=== PATIENT | male | born 1985 | race African-American/Black ===

== ENCOUNTER 2016-07-03 19:39 | Inpatient (IN) | payer BC ==
[~2016-07-03] VITALS: Ht 180.3 cm; Wt 79.4 kg
[2016-07-03] MEDS ORDERED: Vancomycin 1 GM in NS 275 ML IVPB ONE (20:45)
[2016-07-03 20:49] VITALS: BP 101/68
[2016-07-03 21:15] LABS: BASOPHILS % (AUTO) 0.5 % (0.0-2.0); EOSINOPHILS % (AUTO) 0.1 % (0.0-3.0); LYMPHOCYTES % (AUTO) 12.7 % (20.0-45.0); MEAN CORPUSCULAR HEMOGLOBIN 32.6 PG (27.0-31.0); MEAN CORPUSCULAR HGB CONC 34.6 G/DL (32.0-36.0); MEAN CORPUSCULAR VOLUME 94 FL (80-99); MEAN PLATELET VOLUME 5.9 FL (6.5-10.1); MONOCYTES % (AUTO) 3.8 % (1.0-10.0); PLATELET COUNT 277 K/UL (150-450); RED BLOOD COUNT 4.42 M/UL (4.70-6.10); RED CELL DISTRIBUTION WIDTH 10.9 % (11.6-14.8); WHITE BLOOD COUNT 8.6 K/UL (4.8-10.8)
[2016-07-03] MEDS: Dexamethasone 4mg/ml vial IVP ONE ×2 (21:19→22:44)
[2016-07-03] MEDS: cefTRIAXone 2 GM in NS 110 ML IVPB ONE ×2 (21:20→22:44)
[2016-07-03 21:23] LABS: ALANINE AMINOTRANSFERASE 17 U/L (3-41); ALBUMIN/GLOBULIN RATIO 1.7 (1.0-2.7); ANION GAP 18 (5-15); ASPARTATE AMINO TRANSFERASE 25 U/L (5-40); CALCIUM 9.5 mg/dL (8.6-10.2); CARBON DIOXIDE 21 mEQ/L (20-30); CHLORIDE 99 mEQ/L (98-107); CREATININE 1.3 mg/dL (0.7-1.2); GLOMERULAR FILTRATION RATE > 60 mL/min (>60); HEMOLYSIS 8; POTASSIUM 3.7 mEQ/L (3.4-4.9); SODIUM 138 mEQ/L (135-145); TOTAL PROTEIN 7.3 g/dL (6.6-8.7)
[2016-07-03 21:39] LABS: CKMB 4.5 ng/mL (< 6.7); TROPONIN I < 0.30 ng/mL (<=0.30)
[2016-07-03 21:42] LABS: APPEARANCE,URINE CLEAR; KETONES,URINE 3+ (NEGATIVE); LEUKOCYTE ESTERASE ,URINE NEGATIVE (NEGATIVE); NITRITE,URINE NEGATIVE (NEGATIVE); PH,URINE 9 (4.5-8.0); PROTEIN,URINE NEGATIVE (NEGATIVE); UROBILINOGEN,URINE NORMAL MG/DL (0.0-1.0)
[2016-07-03] MEDS ORDERED: NKM (21:47)
--- NOTE | 2016-07-03 21:56 | Emergency Room Report ---
History of Present Illness General Chief Complaint: Abdominal Pain Source: Patient Present Illness HPI 30 YO M brought in by coworkers with AMS. 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 Called this afternoon that he didnt feel well, had headache and vomited. Is non-sensical speech now. No slurred speech or facial droop or limb weakness normal. endorses has smoked marijuana in past but doubts current drug use. Has no other medical problems. Unknown if sick contacts at work. Denies foreign travel. Allergies: Coded Allergies: No Known Allergies (Unverified , 07/03/16) Patient History Past Medical History: none Past Surgical History: none Pertinent Family History: none Social History: Denies: alcohol use, drug use, smoking Immunizations: UTD Reviewed Nursing Documentation: PMH: Agreed, PSxH: Agreed Nursing Documentation-PMH Hx Asthma: Yes Review of Systems All Other Systems: limited - AMS Physical Exam Vital Signs Date Time Temp Pulse Resp B/P Pulse Ox O2 Delivery O2 Flow Rate FiO2 07/03/16 20:02 97.7 73 19 139/64 95 Room Air Sp02 EP Interpretation: reviewed, normal General Appearance: normal inspection, well appearing, no apparent distress, alert, GCS 15, non-toxic Head: normocephalic, atraumatic Eyes: bilateral eye EOMI, bilateral eye PERRL ENT: normal ENT inspection, hearing grossly normal, normal voice Neck: normal inspection, full range of motion, supple, no meningismus, no bony tend Respiratory: normal inspection, lungs clear, normal breath sounds, no respiratory distress, no retraction, no wheezing Cardiovascular #1: regular rate, rhythm, no edema Gastrointestinal: normal inspection, normal bowel sounds, non tender, soft, no guarding, no hernia Genitourinary: no CVA tenderness Musculoskeletal: normal inspection, back normal, normal range of motion, Arya' s Sign negative Neurologic: normal inspection, alert, oriented x3, responsive, apprentice III-XII nml as tested, motor strength/tone normal, DTRs symmetric, normal gait, speech normal, other - negative laney morrison Psychiatric: normal inspection, judgement/insight normal, mood/affect normal Skin: normal inspection, normal color, no rash Lymphatic: normal inspection Procedures Lumbar Puncture Consent: Verbal Location: L3-L4 Anesthesia: 1% Lidocaine Prep: bedadine Needle Size: 1 1/2 Attempts: Other - 2 Complications: none Patient Tolerated: Well Medical Decision Making Diagnostic Impression: Primary Impression: Altered mental status Qualified Codes: R41.82 - Altered mental status, unspecified ER Course 30 YOM with AMS. VSS. Afebrile. No focal neuro deficits. No meningeal signs. No leukocytosis Utox negative. MABEL on labs LP x2 was unsuccessful CT head negative for mass. ?FB seen on left parietal head on CT - no visible FB on patient. endorses distant head trauma Will tx empirically with Cef/Vanc and dex for meningitis although unlikely Patient's mental status is improving but not completely coherent Endorsed to Dr Rodriguez to endorse for admission for tele at 1042pm Last Vital Signs Date Time Temp Pulse Resp B/P Pulse Ox O2 Delivery O2 Flow Rate FiO2 07/03/16 20:49 97.7 80 19 101/68 95 Room Air Status: improved Disposition: ADMITTED INPATIENT Condition: Critical Referrals: NOT CHOSEN IPA/,REFERRING (PCP) LELAND MTZ M.D. Jul 03, 2016 21:56
[2016-07-03 21:58] LABS: REFLEX LACTIC ACID YES OR NO YES
[2016-07-03] MEDS ORDERED: Lidocaine 1% Plain 30 ml INJ ONE (22:29)
[2016-07-03] MEDS ORDERED: Miralax 17gm pkt ORAL PRN (23:15)
[2016-07-03] MEDS ORDERED: Morphine Sulfate 2mg/ml Inj IVP PRN (23:15)
[2016-07-03] MEDS ORDERED: LORazepam Inj 2mg/ml 1ml IV PRN (23:15)
[2016-07-03] MEDS ORDERED: Zolpidem 5mg tab ORAL PRN (23:15)
[2016-07-03] MEDS ORDERED: Mylanta II UD 30ml ORAL PRN (23:15)
[2016-07-03] MEDS ORDERED: Vancomycin 1gm inj IVPB ONE (23:21)
[2016-07-03 23:31] VITALS: BP 128/61
[2016-07-04] VITALS (7 sets, daily range): BP systolic 100–134; BP diastolic 50–68
[2016-07-04 07:44] LABS: BASOPHILS % (AUTO) 0.3 % (0.0-2.0); LYMPHOCYTES % (AUTO) 17.7 % (20.0-45.0); MEAN CORPUSCULAR HEMOGLOBIN 33.2 PG (27.0-31.0); MEAN CORPUSCULAR HGB CONC 35.3 G/DL (32.0-36.0); MEAN CORPUSCULAR VOLUME 94 FL (80-99); MEAN PLATELET VOLUME 6.5 FL (6.5-10.1); MONOCYTES % (AUTO) 4.1 % (1.0-10.0); PLATELET COUNT 255 K/UL (150-450); RED BLOOD COUNT 3.81 M/UL (4.70-6.10); RED CELL DISTRIBUTION WIDTH 11.5 % (11.6-14.8); WHITE BLOOD COUNT 4.5 K/UL (4.8-10.8)
[2016-07-04 07:56] LABS: ALANINE AMINOTRANSFERASE 14 U/L (3-41); ALBUMIN/GLOBULIN RATIO 1.7 (1.0-2.7); ANION GAP 10 (5-15); ASPARTATE AMINO TRANSFERASE 20 U/L (5-40); CALCIUM 8.5 mg/dL (8.6-10.2); CARBON DIOXIDE 22 mEQ/L (20-30); CHLORIDE 105 mEQ/L (98-107); CREATININE 1.1 mg/dL (0.7-1.2); GLOMERULAR FILTRATION RATE > 60 mL/min (>60); HEMOLYSIS 4; POTASSIUM 4.4 mEQ/L (3.4-4.9); SODIUM 137 mEQ/L (135-145); TOTAL PROTEIN 5.8 g/dL (6.6-8.7)
--- NOTE | 2016-07-04 08:56 | Consultation ---
History of Present Illness General Date patient seen: Jul 04, 2016 Chief Complaint: Abdominal Pain Present Illness Allergies: Coded Allergies: No Known Allergies (Unverified , 07/03/16) Medication History Scheduled No Known Medications* (NKM - No Known Medications*), 0 ., (Reported) Patient History Healthcare decision maker Resuscitation status Full Code Advanced Directive on File Yes Physical Exam Last 24 Hour Vital Signs Date Time Temp Pulse Resp B/P Pulse Ox O2 Delivery O2 Flow Rate FiO2 07/04/16 08:08 98.1 92 19 106/58 95 Room Air 07/04/16 04:00 98.2 83 18 100/50 95 Room Air 07/04/16 02:51 97.7 80 19 110/68 95 Room Air 07/04/16 02:45 97.7 80 19 110/68 95 Room Air 07/04/16 01:25 97.7 78 19 104/66 95 Room Air 07/03/16 23:31 97.7 73 19 128/61 95 Room Air 07/03/16 20:49 97.7 80 19 101/68 95 Room Air 07/03/16 20:02 97.7 73 19 139/64 95 Room Air Intake and Output 07/03/16 07/04/16 19:00 07:00 Intake Total 1385 ml Output Total 600 ml Balance 785 ml Intake IV Total 1385 ml Output Urine Total 600 ml Laboratory Tests Test 07/03/16 21:00 07/03/16 22:50 07/04/16 05:35 White Blood Count 8.6 K/UL (4.8-10.8) 4.5 K/UL (4.8-10.8) L Red Blood Count 4.42 M/UL (4.70-6.10) L 3.81 M/UL (4.70-6.10) L Hemoglobin 14.4 G/DL (14.2-18.0) 12.7 G/DL (14.2-18.0) L Hematocrit 41.6 % (42.0-52.0) L 35.9 % (42.0-52.0) L Mean Corpuscular Volume 94 FL (80-99) 94 FL (80-99) Mean Corpuscular Hemoglobin 32.6 PG (27.0-31.0) H 33.2 PG (27.0-31.0) H Mean Corpuscular Hemoglobin Concent 34.6 G/DL (32.0-36.0) 35.3 G/DL (32.0-36.0) Red Cell Distribution Width 10.9 % (11.6-14.8) L 11.5 % (11.6-14.8) L Platelet Count 277 K/UL (150-450) 255 K/UL (150-450) Mean Platelet Volume 5.9 FL (6.5-10.1) L 6.5 FL (6.5-10.1) Neutrophils (%) (Auto) 83.0 % (45.0-75.0) H 78.0 % (45.0-75.0) H Lymphocytes (%) (Auto) 12.7 % (20.0-45.0) L 17.7 % (20.0-45.0) L Monocytes (%) (Auto) 3.8 % (1.0-10.0) 4.1 % (1.0-10.0) Eosinophils (%) (Auto) 0.1 % (0.0-3.0) 0.0 % (0.0-3.0) Basophils (%) (Auto) 0.5 % (0.0-2.0) 0.3 % (0.0-2.0) Prothrombin Time 10.0 SEC (9.30-11.50) Prothromb Time International Ratio 1.0 (0.9-1.1) Activated Partial Thromboplast Time 25 SEC (23-33) Urine Color Yellow Urine Appearance Clear Urine pH 9 (4.5-8.0) Urine Specific [place] 1.015 (1.005-1.035) Urine Protein Negative (NEGATIVE) Urine Glucose (UA) Negative (NEGATIVE) Urine Ketones 3+ (NEGATIVE) H Urine Occult Blood Negative (NEGATIVE) Urine Nitrite Negative (NEGATIVE) Urine Bilirubin Negative (NEGATIVE) Urine Urobilinogen Normal MG/DL (0.0-1.0) Urine Leukocyte Esterase Negative (NEGATIVE) Sodium Level 138 mEQ/L (135-145) 137 mEQ/L (135-145) Potassium Level 3.7 mEQ/L (3.4-4.9) 4.4 mEQ/L (3.4-4.9) Chloride Level 99 mEQ/L (98-107) 105 mEQ/L (98-107) Carbon Dioxide Level 21 mEQ/L (20-30) 22 mEQ/L (20-30) Anion Gap 18 (5-15) H 10 (5-15) Blood Urea Nitrogen 10 mg/dL (7-23) 11 mg/dL (7-23) Creatinine 1.3 mg/dL (0.7-1.2) H 1.1 mg/dL (0.7-1.2) Estimat Glomerular Filtration Rate > 60 mL/min (>60) > 60 mL/min (>60) Glucose Level 127 mg/dL (74-106) H 145 mg/dL (74-106) H Lactic Acid Level 2.90 mmol/L (0.66-2.22) H 2.40 mmol/L (0.66-2.22) H Calcium Level 9.5 mg/dL (8.6-10.2) 8.5 mg/dL (8.6-10.2) L Total Bilirubin 0.4 mg/dL (0.0-1.2) 0.3 mg/dL (0.0-1.2) Aspartate Amino Transf (AST/SGOT) 25 U/L (5-40) 20 U/L (5-40) Alanine Aminotransferase (ALT/SGPT) 17 U/L (3-41) 14 U/L (3-41) Alkaline Phosphatase 54 U/L (40-129) 45 U/L (40-129) Total Creatine Kinase 340 U/L (38-174) H Creatine Kinase MB 4.5 ng/mL (< 6.7) Creatine Kinase MB Relative Index 1.3 Troponin I < 0.30 ng/mL (<=0.30) Total Protein 7.3 g/dL (6.6-8.7) 5.8 g/dL (6.6-8.7) L Albumin 4.6 g/dL (3.5-5.2) 3.7 g/dL (3.5-5.2) Globulin 2.7 g/dL 2.1 g/dL Albumin/Globulin Ratio 1.7 (1.0-2.7) 1.7 (1.0-2.7) Urine Opiates Screen Negative (NEGATIVE) Urine Barbiturates Screen Negative (NEGATIVE) Phencyclidine (PCP) Screen Negative (NEGATIVE) Urine Amphetamines Screen Negative (NEGATIVE) Urine Benzodiazepines Screen Negative (NEGATIVE) Urine Cocaine Screen Negative (NEGATIVE) Urine Marijuana (THC) Screen Negative (NEGATIVE) Triglycerides Level Pending Cholesterol Level Pending LDL Cholesterol Pending HDL Cholesterol Pending Cholesterol/HDL Ratio Pending Thyroid Stimulating Hormone (TSH) Pending Height (Feet): 5 Height (Inches): 11.00 Weight (Pounds): 175 Medications Current Medications Medications (Trade) Dose Ordered Sig/Shannon Route PRN Reason Start Time Stop Time Status Last Admin Dose Admin Acetaminophen (Tylenol) 650 mg Q4H PRN ORAL fever 07/03/16 23:15 08/02/16 23:14 Al Hydroxide/Mg Hydroxide (Mylanta II) 30 ml Q6H PRN ORAL dyspepsia 07/03/16 23:15 08/02/16 23:14 Dextrose (Dextrose 50%) STAT PRN IV Hypoglycemia 07/03/16 23:15 08/02/16 23:14 Lorazepam (Ativan 2mg/ml 1ml) 0.5 mg Q4H PRN IV For Anxiety 07/03/16 23:15 07/10/16 23:14 Morphine Sulfate (Morphine Sulfate) 1 mg Q4H PRN IVP For Pain 07/03/16 23:15 07/10/16 23:14 Ondansetron HCl (Zofran) 4 mg Q6H PRN IVP Nausea & Vomiting 07/03/16 23:15 08/02/16 23:14 Polyethylene Glycol (Miralax) 17 gm HSPRN PRN ORAL Constipation 07/03/16 23:15 08/02/16 23:14 Zolpidem Tartrate (Ambien) 5 mg HSPRN PRN ORAL Insomnia 07/03/16 23:15 08/02/16 23:14 Assessment/Plan Assessment/Plan (1) Altered Mental Status (2) Meningitis (3) Headache Seen dictated. LORE FELIX Jul 04, 2016 08:56
--- NOTE | 2016-07-04 09:23 | Diagnostic Imaging Report ---
Indication: Altered mental status Technique: Continuous helical CT scanning of the head was performed without intravenous contrast material. Axial and coronal 5 mm sections were generated. Radiation dose was minimized using automated exposure control Dose: Total Dose Length Product - DLP [address] Dose Index - CTDIvol(s) 70.38 mGy. Comparison: None Findings: The ventricular system is normal in size and configuration. There is no shift of midline structures. No abnormal extra-axial fluid collections are noted. There is no evidence of intracerebral bleeding. No other abnormal high or low density areas are noted within the brain. The orbits and sinuses are unremarkable. The calvarium is intact. There is minimal left high parietal scalp soft tissue swelling there is some high attenuation material is noted,. Could represent a foreign body if in the setting of trauma Impression: Normal CT scan of the head without contrast material. High attenuation material within the left high parietal scalp, foreign body on suitable. Correlate with clinical findings This agrees with the preliminary interpretation provided overnight by Dr. Arias The CT scanner at [facility] is accredited by the [employer] and the scans are performed using protocols designed to limit radiation exposure to as low as reasonably achievable to attain images of sufficient resolution adequate for diagnostic evaluation.
[2016-07-04] MEDS ORDERED: cefTRIAXone 2 GM in D5W 110 ML IVPB SCH ×2 (11:00→23:00)
[2016-07-04] MEDS: cefTRIAXone 2 GM in D5W 110 ML IVPB SCH ×2 (12:55→22:37)
[2016-07-04] MEDS ORDERED: Vancomycin 1 GM in D5W 275 ML IVPB SCH (13:00)
[2016-07-04 13:53] LABS: CHOLESTEROL 162 mg/dL (< 200); CHOLESTEROL/HDL RATIO 3.3 (3.3-4.4); LDL CHOLESTEROL (CALC.) 105 mg/dL (60-99)
[2016-07-04] MEDS: ACYCLOVIR IV SCH ×2 (13:59→21:28)
[2016-07-04] MEDS: D5W IV SCH ×2 (13:59→21:28)
[2016-07-04 14:06] LABS: THYROID STIMULATING HORMONE 0.261 uIU/mL (0.300-4.500)
--- NOTE | 2016-07-04 14:16 | Cardiology Report ---
APPROVED REPORT EKG Measurement Heart [id number] Normal sinus rhythm with sinus arrhythmia Normal ECG
--- NOTE | 2016-07-04 14:41 | Diagnostic Imaging Report ---
APPROVED REPORT CPT Code: 63031 Present Symptoms Lower Extremity Pain: Bilateral BILATERAL: Imaging reveals a patent deep venous system bilaterally. There is no evidence of thrombus within the femoral, popliteal or tibial segments. The greater saphenous veins are also within normal limits. Doppler indicates normal spontaneous flow within these segments.
--- NOTE | 2016-07-04 15:00 | Infectious Diseases Prog Note ---
Assessment/Plan Problems: (1) Meningitis Assessment & Plan: suspect viral with rapid improvement , will start ceftriaxon , vancomycin and acyclovir empirically , LP was not successful, will order MRI of the brain, recommend neurology consult to rule out seizure . (2) Headache Assessment & Plan: due to meningitis, continue pain meds, will check MRI (3) Altered mental status Assessment & Plan: suspect meningitis VS seizure will order an MRI of the brain , recommend neurology consult Subjective Allergies: Coded Allergies: No Known Allergies (Unverified , 07/03/16) Objective Vital Signs Last 24 Hour Vital Signs Date Time Temp Pulse Resp B/P Pulse Ox O2 Delivery O2 Flow Rate FiO2 07/04/16 11:34 98.6 85 18 110/56 98 Room Air 07/04/16 08:08 98.1 92 19 106/58 95 Room Air 07/04/16 04:00 98.2 83 18 100/50 95 Room Air 07/04/16 02:51 97.7 80 19 110/68 95 Room Air 07/04/16 02:45 97.7 80 19 110/68 95 Room Air 07/04/16 01:25 97.7 78 19 104/66 95 Room Air 07/03/16 23:31 97.7 73 19 128/61 95 Room Air 07/03/16 20:49 97.7 80 19 101/68 95 Room Air 07/03/16 20:02 97.7 73 19 139/64 95 Room Air Height (Feet): 5 Height (Inches): 11.00 Weight (Pounds): 175 Laboratory Tests Test 07/03/16 21:00 07/03/16 22:50 07/04/16 05:35 White Blood Count 8.6 K/UL (4.8-10.8) 4.5 K/UL (4.8-10.8) L Red Blood Count 4.42 M/UL (4.70-6.10) L 3.81 M/UL (4.70-6.10) L Hemoglobin 14.4 G/DL (14.2-18.0) 12.7 G/DL (14.2-18.0) L Hematocrit 41.6 % (42.0-52.0) L 35.9 % (42.0-52.0) L Mean Corpuscular Volume 94 FL (80-99) 94 FL (80-99) Mean Corpuscular Hemoglobin 32.6 PG (27.0-31.0) H 33.2 PG (27.0-31.0) H Mean Corpuscular Hemoglobin Concent 34.6 G/DL (32.0-36.0) 35.3 G/DL (32.0-36.0) Red Cell Distribution Width 10.9 % (11.6-14.8) L 11.5 % (11.6-14.8) L Platelet Count 277 K/UL (150-450) 255 K/UL (150-450) Mean Platelet Volume 5.9 FL (6.5-10.1) L 6.5 FL (6.5-10.1) Neutrophils (%) (Auto) 83.0 % (45.0-75.0) H 78.0 % (45.0-75.0) H Lymphocytes (%) (Auto) 12.7 % (20.0-45.0) L 17.7 % (20.0-45.0) L Monocytes (%) (Auto) 3.8 % (1.0-10.0) 4.1 % (1.0-10.0) Eosinophils (%) (Auto) 0.1 % (0.0-3.0) 0.0 % (0.0-3.0) Basophils (%) (Auto) 0.5 % (0.0-2.0) 0.3 % (0.0-2.0) Prothrombin Time 10.0 SEC (9.30-11.50) Prothromb Time International Ratio 1.0 (0.9-1.1) Activated Partial Thromboplast Time 25 SEC (23-33) Urine Color Yellow Urine Appearance Clear Urine pH 9 (4.5-8.0) Urine Specific [place] 1.015 (1.005-1.035) Urine Protein Negative (NEGATIVE) Urine Glucose (UA) Negative (NEGATIVE) Urine Ketones 3+ (NEGATIVE) H Urine Occult Blood Negative (NEGATIVE) Urine Nitrite Negative (NEGATIVE) Urine Bilirubin Negative (NEGATIVE) Urine Urobilinogen Normal MG/DL (0.0-1.0) Urine Leukocyte Esterase Negative (NEGATIVE) Sodium Level 138 mEQ/L (135-145) 137 mEQ/L (135-145) Potassium Level 3.7 mEQ/L (3.4-4.9) 4.4 mEQ/L (3.4-4.9) Chloride Level 99 mEQ/L (98-107) 105 mEQ/L (98-107) Carbon Dioxide Level 21 mEQ/L (20-30) 22 mEQ/L (20-30) Anion Gap 18 (5-15) H 10 (5-15) Blood Urea Nitrogen 10 mg/dL (7-23) 11 mg/dL (7-23) Creatinine 1.3 mg/dL (0.7-1.2) H 1.1 mg/dL (0.7-1.2) Estimat Glomerular Filtration Rate > 60 mL/min (>60) > 60 mL/min (>60) Glucose Level 127 mg/dL (74-106) H 145 mg/dL (74-106) H Lactic Acid Level 2.90 mmol/L (0.66-2.22) H 2.40 mmol/L (0.66-2.22) H Calcium Level 9.5 mg/dL (8.6-10.2) 8.5 mg/dL (8.6-10.2) L Total Bilirubin 0.4 mg/dL (0.0-1.2) 0.3 mg/dL (0.0-1.2) Aspartate Amino Transf (AST/SGOT) 25 U/L (5-40) 20 U/L (5-40) Alanine Aminotransferase (ALT/SGPT) 17 U/L (3-41) 14 U/L (3-41) Alkaline Phosphatase 54 U/L (40-129) 45 U/L (40-129) Total Creatine Kinase 340 U/L (38-174) H Creatine Kinase MB 4.5 ng/mL (< 6.7) Creatine Kinase MB Relative Index 1.3 Troponin I < 0.30 ng/mL (<=0.30) Total Protein 7.3 g/dL (6.6-8.7) 5.8 g/dL (6.6-8.7) L Albumin 4.6 g/dL (3.5-5.2) 3.7 g/dL (3.5-5.2) Globulin 2.7 g/dL 2.1 g/dL Albumin/Globulin Ratio 1.7 (1.0-2.7) 1.7 (1.0-2.7) Urine Opiates Screen Negative (NEGATIVE) Urine Barbiturates Screen Negative (NEGATIVE) Phencyclidine (PCP) Screen Negative (NEGATIVE) Urine Amphetamines Screen Negative (NEGATIVE) Urine Benzodiazepines Screen Negative (NEGATIVE) Urine Cocaine Screen Negative (NEGATIVE) Urine Marijuana (THC) Screen Negative (NEGATIVE) Triglycerides Level 38 mg/dL (< 150) Cholesterol Level 162 mg/dL (< 200) LDL Cholesterol 105 mg/dL (60-99) H HDL Cholesterol 49 mg/dL (> 60) Cholesterol/HDL Ratio 3.3 (3.3-4.4) Thyroid Stimulating Hormone (TSH) 0.261 uIU/mL (0.300-4.500) Current Medications Medications (Trade) Dose Ordered Sig/Shannon Route PRN Reason Start Time Stop Time Status Last Admin Dose Admin Acetaminophen (Tylenol) 650 mg Q4H PRN ORAL fever 07/03/16 23:15 08/02/16 23:14 Acyclovir 750 mg/ Dextrose 110 ml @ 110 mls/hr Q8HR IV 07/04/16 12:00 08/03/16 11:59 07/04/16 13:59 Al Hydroxide/Mg Hydroxide (Mylanta II) 30 ml Q6H PRN ORAL dyspepsia 07/03/16 23:15 08/02/16 23:14 Ceftriaxone Sodium/Dextrose (Rocephin/D5W) 110 ml @ 220 mls/hr Q12HR@1100,2300 IVPB 07/04/16 11:00 07/11/16 10:59 07/04/16 12:55 Dextrose STAT PRN IV Hypoglycemia 07/03/16 23:15 08/02/16 23:14 Lorazepam (Ativan 2mg/ml 1ml) 0.5 mg Q4H PRN IV For Anxiety 07/03/16 23:15 07/10/16 23:14 Morphine Sulfate (Morphine Sulfate) 1 mg Q4H PRN IVP For Pain 07/03/16 23:15 07/10/16 23:14 Olanzapine 5 mg 5 mg BEDTIME ORAL 07/04/16 21:00 08/03/16 20:59 Ondansetron HCl (Zofran) 4 mg Q6H PRN IVP Nausea & Vomiting 07/03/16 23:15 08/02/16 23:14 Polyethylene Glycol (Miralax) 17 gm HSPRN PRN ORAL Constipation 07/03/16 23:15 08/02/16 23:14 Vancomycin HCl/ Dextrose (Vancomycin/D5W) 275 ml @ 183.708 mls/hr Q8HR@0000,0800,1600 IVPB 07/04/16 16:00 07/09/16 15:59 Zolpidem Tartrate (Ambien) 5 mg HSPRN PRN ORAL Insomnia 07/03/16 23:15 08/02/16 23:14 Jerrod Staton M.D. Jul 04, 2016 15:00
--- NOTE | 2016-07-04 15:05 | Consultation ---
History of Present Illness General Date patient seen: Jul 04, 2016 Chief Complaint: Abdominal Pain Referring physician: Dr. Perez Reason for Consultation: Aloc Present Illness HPI 30 year old male brought in by coworkers with AMS. 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 Called this afternoon that he didnt feel well, had headache and vomited.Patient became delirious . Allergies: Coded Allergies: No Known Allergies (Unverified , 07/03/16) Medication History Scheduled No Known Medications* (NKM - No Known Medications*), 0 ., (Reported) Patient History Healthcare decision maker Resuscitation status Full Code Advanced Directive on File Yes Past Medical/Surgical History Past Medical/Surgical History: (1) No pertinent past medical history Review of Systems All Other Systems: negative except mentioned in HPI Physical Exam Lines, tubes and drains: peripheral HEENT: normocephalic, atraumatic Respiratory/Chest: chest wall non-tender, lungs clear Cardiovascular/Chest: normal peripheral pulses, regular rhythm Last 24 Hour Vital Signs Date Time Temp Pulse Resp B/P Pulse Ox O2 Delivery O2 Flow Rate FiO2 07/04/16 11:34 98.6 85 18 110/56 98 Room Air 07/04/16 08:08 98.1 92 19 106/58 95 Room Air 07/04/16 04:00 98.2 83 18 100/50 95 Room Air 07/04/16 02:51 97.7 80 19 110/68 95 Room Air 07/04/16 02:45 97.7 80 19 110/68 95 Room Air 07/04/16 01:25 97.7 78 19 104/66 95 Room Air 07/03/16 23:31 97.7 73 19 128/61 95 Room Air 07/03/16 20:49 97.7 80 19 101/68 95 Room Air 07/03/16 20:02 97.7 73 19 139/64 95 Room Air Intake and Output 07/03/16 07/04/16 19:00 07:00 Intake Total 1385 ml Output Total 600 ml Balance 785 ml IV Total 1385 ml Output Urine Total 600 ml Laboratory Tests Test 07/03/16 21:00 07/03/16 22:50 07/04/16 05:35 White Blood Count 8.6 K/UL (4.8-10.8) 4.5 K/UL (4.8-10.8) L Red Blood Count 4.42 M/UL (4.70-6.10) L 3.81 M/UL (4.70-6.10) L Hemoglobin 14.4 G/DL (14.2-18.0) 12.7 G/DL (14.2-18.0) L Hematocrit 41.6 % (42.0-52.0) L 35.9 % (42.0-52.0) L Mean Corpuscular Volume 94 FL (80-99) 94 FL (80-99) Mean Corpuscular Hemoglobin 32.6 PG (27.0-31.0) H 33.2 PG (27.0-31.0) H Mean Corpuscular Hemoglobin Concent 34.6 G/DL (32.0-36.0) 35.3 G/DL (32.0-36.0) Red Cell Distribution Width 10.9 % (11.6-14.8) L 11.5 % (11.6-14.8) L Platelet Count 277 K/UL (150-450) 255 K/UL (150-450) Mean Platelet Volume 5.9 FL (6.5-10.1) L 6.5 FL (6.5-10.1) Neutrophils (%) (Auto) 83.0 % (45.0-75.0) H 78.0 % (45.0-75.0) H Lymphocytes (%) (Auto) 12.7 % (20.0-45.0) L 17.7 % (20.0-45.0) L Monocytes (%) (Auto) 3.8 % (1.0-10.0) 4.1 % (1.0-10.0) Eosinophils (%) (Auto) 0.1 % (0.0-3.0) 0.0 % (0.0-3.0) Basophils (%) (Auto) 0.5 % (0.0-2.0) 0.3 % (0.0-2.0) Prothrombin Time 10.0 SEC (9.30-11.50) Prothromb Time International Ratio 1.0 (0.9-1.1) Activated Partial Thromboplast Time 25 SEC (23-33) Urine Color Yellow Urine Appearance Clear Urine pH 9 (4.5-8.0) Urine Specific [place] 1.015 (1.005-1.035) Urine Protein Negative (NEGATIVE) Urine Glucose (UA) Negative (NEGATIVE) Urine Ketones 3+ (NEGATIVE) H Urine Occult Blood Negative (NEGATIVE) Urine Nitrite Negative (NEGATIVE) Urine Bilirubin Negative (NEGATIVE) Urine Urobilinogen Normal MG/DL (0.0-1.0) Urine Leukocyte Esterase Negative (NEGATIVE) Sodium Level 138 mEQ/L (135-145) 137 mEQ/L (135-145) Potassium Level 3.7 mEQ/L (3.4-4.9) 4.4 mEQ/L (3.4-4.9) Chloride Level 99 mEQ/L (98-107) 105 mEQ/L (98-107) Carbon Dioxide Level 21 mEQ/L (20-30) 22 mEQ/L (20-30) Anion Gap 18 (5-15) H 10 (5-15) Blood Urea Nitrogen 10 mg/dL (7-23) 11 mg/dL (7-23) Creatinine 1.3 mg/dL (0.7-1.2) H 1.1 mg/dL (0.7-1.2) Estimat Glomerular Filtration Rate > 60 mL/min (>60) > 60 mL/min (>60) Glucose Level 127 mg/dL (74-106) H 145 mg/dL (74-106) H Lactic Acid Level 2.90 mmol/L (0.66-2.22) H 2.40 mmol/L (0.66-2.22) H Calcium Level 9.5 mg/dL (8.6-10.2) 8.5 mg/dL (8.6-10.2) L Total Bilirubin 0.4 mg/dL (0.0-1.2) 0.3 mg/dL (0.0-1.2) Aspartate Amino Transf (AST/SGOT) 25 U/L (5-40) 20 U/L (5-40) Alanine Aminotransferase (ALT/SGPT) 17 U/L (3-41) 14 U/L (3-41) Alkaline Phosphatase 54 U/L (40-129) 45 U/L (40-129) Total Creatine Kinase 340 U/L (38-174) H Creatine Kinase MB 4.5 ng/mL (< 6.7) Creatine Kinase MB Relative Index 1.3 Troponin I < 0.30 ng/mL (<=0.30) Total Protein 7.3 g/dL (6.6-8.7) 5.8 g/dL (6.6-8.7) L Albumin 4.6 g/dL (3.5-5.2) 3.7 g/dL (3.5-5.2) Globulin 2.7 g/dL 2.1 g/dL Albumin/Globulin Ratio 1.7 (1.0-2.7) 1.7 (1.0-2.7) Urine Opiates Screen Negative (NEGATIVE) Urine Barbiturates Screen Negative (NEGATIVE) Phencyclidine (PCP) Screen Negative (NEGATIVE) Urine Amphetamines Screen Negative (NEGATIVE) Urine Benzodiazepines Screen Negative (NEGATIVE) Urine Cocaine Screen Negative (NEGATIVE) Urine Marijuana (THC) Screen Negative (NEGATIVE) Triglycerides Level 38 mg/dL (< 150) Cholesterol Level 162 mg/dL (< 200) LDL Cholesterol 105 mg/dL (60-99) H HDL Cholesterol 49 mg/dL (> 60) Cholesterol/HDL Ratio 3.3 (3.3-4.4) Thyroid Stimulating Hormone (TSH) 0.261 uIU/mL (0.300-4.500) Height (Feet): 5 Height (Inches): 11.00 Weight (Pounds): 175 Medications Current Medications Medications (Trade) Dose Ordered Sig/Shannon Route PRN Reason Start Time Stop Time Status Last Admin Dose Admin Acetaminophen (Tylenol) 650 mg Q4H PRN ORAL fever 07/03/16 23:15 08/02/16 23:14 Acyclovir 750 mg/ Dextrose 110 ml @ 110 mls/hr Q8HR IV 07/04/16 12:00 08/03/16 11:59 07/04/16 13:59 Al Hydroxide/Mg Hydroxide (Mylanta II) 30 ml Q6H PRN ORAL dyspepsia 07/03/16 23:15 08/02/16 23:14 Ceftriaxone Sodium/Dextrose (Rocephin/D5W) 110 ml @ 220 mls/hr Q12HR@1100,2300 IVPB 07/04/16 11:00 07/11/16 10:59 07/04/16 12:55 Dextrose STAT PRN IV Hypoglycemia 07/03/16 23:15 08/02/16 23:14 Lorazepam (Ativan 2mg/ml 1ml) 0.5 mg Q4H PRN IV For Anxiety 07/03/16 23:15 07/10/16 23:14 Morphine Sulfate (Morphine Sulfate) 1 mg Q4H PRN IVP For Pain 07/03/16 23:15 07/10/16 23:14 Olanzapine 5 mg 5 mg BEDTIME ORAL 07/04/16 21:00 08/03/16 20:59 Ondansetron HCl (Zofran) 4 mg Q6H PRN IVP Nausea & Vomiting 07/03/16 23:15 08/02/16 23:14 Polyethylene Glycol (Miralax) 17 gm HSPRN PRN ORAL Constipation 07/03/16 23:15 08/02/16 23:14 Vancomycin HCl/ Dextrose (Vancomycin/D5W) 275 ml @ 183.708 mls/hr Q8HR@0000,0800,1600 IVPB 07/04/16 16:00 07/09/16 15:59 Zolpidem Tartrate (Ambien) 5 mg HSPRN PRN ORAL Insomnia 07/03/16 23:15 08/02/16 23:14 Assessment/Plan Problem List: (1) Altered mental status ICD Codes: R41.82 - Altered mental status, unspecified SNOMED: [id number] Qualifiers: Qualified Codes: R41.82 - Altered mental status, unspecified Assessment/Plan pts mental status cleared already. probably some viral infection. MAURICIO MENSAH Jul 04, 2016 15:05
[2016-07-04] MEDS: Vancomycin 1 GM in D5W 275 ML IVPB SCH (16:17)
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
--- NOTE | 2016-07-04 20:37 | History and Physical Report ---
DATE OF ADMISSION: 07/03/2016 HISTORY OF PRESENT ILLNESS: The patient states that he ate yesterday and started vomiting after that and all of a sudden, the patient started having experiencing the headache, delirium, and confusion. states that he could not make sense of what he was saying. The patient also has had a double vision with acute onset and it pretty much gone this morning, but it lasted about a day. PAST MEDICAL HISTORY: Significant for subtherapeutic asthma, takes inhalers p.r.n. No head injury. MEDICATIONS: P.r.n. inhalers. ALLERGIES: No known allergies. SOCIAL HISTORY: History of smoking and history of using marijuana in the past. No history of alcohol abuse. FAMILY HISTORY: Noncontributory. REVIEW OF SYSTEMS: HEENT: Did have headache yesterday after he ate. He had double vision. No dizziness. Chest: No shortness of breath. No cough. Cardiovascular: No chest pain. No orthopnea. Abdomen: The patient vomited multiple times. No abdominal pain. Extremities: No pain in the lower extremities. Central Nervous System: There was a double vision and headache, severe. It lasted one day. PHYSICAL EXAMINATION: VITAL SIGNS: Temperature is 97.7 degrees, pulse is 72, and blood pressure 128/61. HEENT: PERRLA. NECK: Supple. No lymphadenopathy. CHEST: Clear to auscultation. ABDOMEN: Soft, nontender, and nondistended. No organomegaly. EXTREMITIES: No edema. Reflexes are equal on both sides. NEUROLOGIC: Cranial nerves II through XII are intact. No meningismus signs. Neurologically, intact. Motor 5/5 in all extremities. Reflexes are equal on both sides. The patient is much and resolved at this point. LABORATORY DATA: Laboratory tran, WBC of 8.6, hemoglobin 14.4, and platelets 277,000. Sodium 138, potassium 2.7, BUN of 10, creatinine 1.3, and glucose of 127. ASSESSMENT: 1. Altered mental status. 2. Encephalopathy, rule out infectious etiology, rule out meningitis. The patient is on isolation. PLAN: I have asked Dr. Patiño, Dr. Yu, Dr. Saucedo, Dr. Osborn, and Dr. Staton to see the patient for the above-mentioned diagnoses and treatment. could not be done despite multiple attempts by the ER doctor. So, I will defer the to Dr. Staton as well as Dr. Saucedo. Renard Perez M.D. DR: SHANNAN JOB#: [id number] CC:
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
[2016-07-05] VITALS: BP 130/41
[2016-07-05] MEDS: Vancomycin 1 GM in D5W 275 ML IVPB SCH ×2 (00:14→08:06)
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
--- NOTE | 2016-07-05 00:57 | Consultation ---
DATE OF CONSULTATION: HISTORY OF PRESENT ILLNESS: This is a 30-year-old man who has been admitted to the hospital brought in by co-worker with altered mental status. The patient did complain of nausea his the day prior to the admission complained of headaches and vomited and has been presenting with disorganized speech and behavior, slurred speech, however, there was no other neurological . The patient is currently confused and is disoriented and is unable to provide any history. The patient is following commands. CT scan of the head has been negative. PAST PSYCHIATRIC HISTORY: There is no history of psychiatric disorder, however, his has reported that the patient has a history of anxiety. PAST MEDICAL HISTORY: Not significant. ALLERGIES: There is no known drug allergies. SUBSTANCE ABUSE HISTORY: There is no reported illicit drug use or alcohol, however, the patient smokes marijuana. SOCIAL HISTORY: The patient is , is employed. MENTAL STATUS EXAMINATION: The patient is confused, however, follows commands. He is alert oriented to self and place. His speech is within normal limits. Mood is neutral. Affect is constricted. Congruent mood. Thought process is disorganized. Thought content, no suicidal or homicidal ideation. Insight and judgment, . ASSESSMENT: AXIS I Psychotic disorder, not otherwise specified. Rule out delirium. AXIS II Deferred. AXIS III Abdominal pain and vomiting. AXIS IV Low. AXIS V Global assessment of functioning is 20. PLAN: 1. We will start the patient on Zyprexa at this time. 2. I recommend to avoid prescribing benzodiazepine, opiate, pain medications or anticholinergic medications as it may exacerbate altered mental status, and confusion. Robson Patiño M.D. DR: KASEY JOB#: [id number] CC:
[2016-07-05 04:00] VITALS: BP 120/81
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
[2016-07-05] MEDS: D5W IV SCH (06:02)
[2016-07-05] MEDS: ACYCLOVIR IV SCH (06:02)
[2016-07-05 08:15] LABS: MEAN CORPUSCULAR HEMOGLOBIN 31.9 PG (27.0-31.0); MEAN CORPUSCULAR HGB CONC 33.7 G/DL (32.0-36.0); MEAN CORPUSCULAR VOLUME 95 FL (80-99); MEAN PLATELET VOLUME 7.2 FL (6.5-10.1); PLATELET COUNT 230 K/UL (150-450); RED BLOOD COUNT 3.85 M/UL (4.70-6.10); RED CELL DISTRIBUTION WIDTH 11.4 % (11.6-14.8); WHITE BLOOD COUNT 6.5 K/UL (4.8-10.8)
--- NOTE | 2016-07-05 08:17 | Diagnostic Imaging Report ---
Indication: Shortness of breath Technique: One view of the chest Comparison: none Findings: Lead shield obscures right lung base. Exam repeated, per patient request. The lungs and pleural spaces are otherwise clear. Heart size is normal Impression: No acute process
[2016-07-05 08:18] VITALS: BP 121/62
[2016-07-05] MEDS ORDERED: cefTRIAXone 2 GM in D5W 110 ML IVPB SCH (09:00)
--- NOTE | 2016-07-05 09:48 | General Progress Note ---
Assessment/Plan Assessment/Plan (1) Altered Mental Status (2) Meningitis (3) Headache The patient will be continued on morphine as needed. The patient was discussed with Dr. Yu and Dr. Yu concurred. Subjective Date patient seen: Jul 05, 2016 Time patient seen: 07:15 - am Allergies: Coded Allergies: No Known Allergies (Unverified , 07/03/16) Subjective REVIEW OF SYSTEMS: Denies rash, fever, chills, sweating, dizziness, drowsiness, blurred vision, sore throat, or change in weight. No nausea, vomiting, diarrhea, or blood in the stool or urine. No bowel or bladder incontinence. No dysuria. SUBJECTIVE: Pt is doing well and going for MRI of brain. Objective Last 24 Hour Vital Signs Date Time Temp Pulse Resp B/P Pulse Ox O2 Delivery O2 Flow Rate FiO2 07/05/16 08:18 97.5 67 19 121/62 97 Room Air 07/05/16 04:00 97.9 69 20 120/81 96 Room Air 07/05/16 00:00 99.1 88 20 130/41 95 Room Air 07/04/16 19:55 98.1 77 20 134/64 95 Room Air 07/04/16 15:33 98.1 74 19 109/62 97 Room Air 07/04/16 11:34 98.6 85 18 110/56 98 Room Air Intake and Output 07/04/16 07/05/16 19:00 07:00 Intake Total 1075 ml 220 ml Balance 1075 ml 220 ml Intake Oral 800 ml IV Total 275 ml 220 ml # Voids 4 5 Laboratory Tests 07/04/16 17:50: Coccidioides Antibody (Comp Fix) [Pending], Cryptococcus Antigen [Pending], Cytomegalovirus DNA PCR copies/ml [Pending], Cytomegalovirus DNA PCR log10 [ Pending], Herpes Simplex Virus I IgM Ab (IFA) [Pending], Herpes Simplex Virus II IgM Ab (IFA [Pending], Monoscreen [Pending], Varicella-Zoster IgM Antibody [ Pending] 07/05/16 06:45: White Blood Count 6.5, Red Blood Count 3.85L, Hemoglobin 12.3L, Hematocrit 36.5L , Mean Corpuscular Volume 95, Mean Corpuscular Hemoglobin 31.9H, Mean Corpuscular Hemoglobin Concent 33.7, Red Cell Distribution Width 11.4L, Platelet Count 230, Mean Platelet Volume 7.2, Neutrophils (%) (Auto) , Lymphocytes (%) (Auto) , Monocytes (%) (Auto) , Eosinophils (%) (Auto) , Basophils (%) (Auto) , Neutrophils % (Manual) [Pending], Lymphocytes % (Manual) [Pending], Platelet Estimate [Pending], Platelet Morphology [Pending], Vancomycin Level Trough 14.8H Height (Feet): 5 Height (Inches): 11.00 Weight (Pounds): 175 Objective GENERAL: Alert, awake, and oriented x3. HEENT: PERRLA. NECK: Range of motion is full in all directions. No tenderness to paracervical muscles. No adenopathy. LUNGS: Clear. HEART: S1 and S2 regular. ABDOMEN: Benign. BACK: Range of motion is decreased in flexion and extension. No tenderness to paraspinal muscles, trapezius, or rhomboid muscles EXTREMITIES: No cyanosis, no clubbing, or no edema. NEURO: No changes. LORE FELIX Jul 05, 2016 09:48
[2016-07-05 10:25] LABS: BAND NEUTROPHILS % (MANUAL) 0 % (0-8); BASOPHILS % (MANUAL) 0 % (0-2); EOSINOPHILS % (MANUAL) 2 % (0-3); LYMPHOCYTES % (MANUAL) 46 % (20-45); NEUTROPHILS % (MANUAL) 45 % (45-75); PLATELET ESTIMATE ADEQUATE; PLATELET MORPHOLOGY NORMAL; TOTAL CELLS COUNTED 100
[2016-07-05 10:53] LABS: PATH BLOOD SMEAR/OMC SENT TO PATHOLOGIST
[2016-07-05 11:42] VITALS: BP 104/54
--- NOTE | 2016-07-05 12:06 | Diagnostic Imaging Report ---
Indications: Altered level of consciousness Technique: Sagittal and axial T1 weighted fast spin-echo, axial T2-weighted fat saturated fast spin echo, T2-weighted FLAIR, T2*-weighted gradient echo, and diffusion sequences of the brain were performed prior to IV gadolinium administration. Axial and coronal T1 weighted fast spin-echo was performed following IV gadolinium administration. Findings: Comparison: Noncontrast CT head 07/03/16 Intracranial anatomy unremarkable. No evidence of mass or hemorrhage, other signal abnormality, mass effect, midline shift, hydrocephalus, or increased intracranial pressure. No restricted diffusion. No abnormal enhancement. Central vascular flow voids preserved. Polypoid soft tissue densities in bilateral maxillary sinuses. IMPRESSION: Bilateral maxillary sinus polyps versus retention cysts Otherwise negative Negative MRI of the brain without and with gadolinium--no evidence of meningitis or other acute abnormality.
--- NOTE | 2016-07-05 12:13 | Neurology Progress Note ---
Interim History Interim History Interim History Mr. Stallings feels well. He feels he is back to normal. He has had no new neurologic symptoms. He specifically denies any weakness, numbness, dizziness, lightheadedness, speech problems, language problems or any other neurologic symptoms. Review of Systems Neuro Review of Systems Benign. Objective Physical Exam Last Vital Signs Date Time Temp Pulse Resp B/P Pulse Ox O2 Delivery O2 Flow Rate FiO2 07/05/16 11:42 97.7 61 19 104/54 97 Room Air Laboratory Tests Test 07/04/16 17:50 07/05/16 06:45 Coccidioides Antibody (Comp Fix) Pending Cryptococcus Antigen Pending Cytomegalovirus DNA PCR copies/ml Pending Cytomegalovirus DNA PCR log10 Pending Herpes Simplex Virus I IgM Ab (IFA) Pending Herpes Simplex Virus II IgM Ab (IFA Pending Monoscreen Pending Varicella-Zoster IgM Antibody Pending White Blood Count 6.5 K/UL (4.8-10.8) Red Blood Count 3.85 M/UL (4.70-6.10) L Hemoglobin 12.3 G/DL (14.2-18.0) L Hematocrit 36.5 % (42.0-52.0) L Mean Corpuscular Volume 95 FL (80-99) Mean Corpuscular Hemoglobin 31.9 PG (27.0-31.0) H Mean Corpuscular Hemoglobin Concent 33.7 G/DL (32.0-36.0) Red Cell Distribution Width 11.4 % (11.6-14.8) L Platelet Count 230 K/UL (150-450) Mean Platelet Volume 7.2 FL (6.5-10.1) Neutrophils (%) (Auto) % (45.0-75.0) Lymphocytes (%) (Auto) % (20.0-45.0) Monocytes (%) (Auto) % (1.0-10.0) Eosinophils (%) (Auto) % (0.0-3.0) Basophils (%) (Auto) % (0.0-2.0) Differential Total Cells Counted 100 Neutrophils % (Manual) 45 % (45-75) Lymphocytes % (Manual) 46 % (20-45) H Monocytes % (Manual) 7 % (1-10) Eosinophils % (Manual) 2 % (0-3) Basophils % (Manual) 0 % (0-2) Band Neutrophils 0 % (0-8) Platelet Estimate Adequate Platelet Morphology Normal Red Blood Cell Morphology Normal Vancomycin Level Trough 14.8 ug/mL (5.0-12.0) H Neurologic Exam Objective PHYSICAL EXAMINATION: GENERAL: He is a well-developed, well-nourished, pleasant black gentleman, lying in bed, in no acute distress. HEAD: Normocephalic and atraumatic. EENT: Examination benign. NECK: No neck rigidity was observed. SPINE: Cervical, thoracic, and lumbosacral spine revealed no tenderness, no paraspinal muscle spasm, and good range of motion. Signs of meningeal irritation: Absent. NEUROLOGICAL EXAMINATION: MENTAL STATUS EXAMINATION: He was alert and awake. He was oriented to person, place, and time. He was able to recall 3/3 words immediately after 1 minute and after 3 minutes on the second trial. He was able to remember presidents Trump through [employer] senior. His mathematical skills were good. His visuospatial function was preserved. SPEECH: He had no dysarthria. LANGUAGE: He had no aphasia. CRANIAL NERVE EXAMINATION: II: The visual bolton are intact on confrontation testing. III, IV & : The external ocular movements were full and the pupils 3 mm in diameter, equal, round, regular, and reactive to light. V: He had normal facial sensations and the temporales, masseters, and pterygoids functioned normally. VII: He had normal facial expressions and no facial asymmetry. VIII: He was able to hear well bilaterally and he had no nystagmus. IX: The palate moved symmetrically on phonation. X: He had no hoarseness of voice. XI: The sternocleidomastoids and trapezii functioned normally. XII: The tongue was in the midline without any fasciculations or atrophy. MOTOR SYSTEM: The tone was normal in all four extremities. Examination of muscle mass revealed no focal wasting. Examination of power revealed grade 5/5 power in all muscle groups tested. SENSORY EXAMINATION: He had intact sensations to pinprick, light touch, and graphesthesia. COORDINATION: He performed well on koywzl-ed-bnsz and osro-az-bscq testing. Romberg test was negative. REFLEXES: 2+ and bilaterally symmetrical at the biceps, triceps, brachioradialis , knees, and ankles. The plantar responses were flexor bilaterally. STANCE: He had a normal stance. GAIT: He had a normal gait. Impression/Recommendations Diagnostic Impression 1. Mr. Deng Stallings is a 30-year-old, right-handed black gentleman with a relatively benign past history, who rode his bicycle to work after a long period of not riding a bicycle. When he got to work, he felt a little unwell and after he ate some pasta, he started to have nausea, vomiting, and then confusion, disorientation, and problems expressing himself. He also had some shaking chills and muscle cramps. He was brought into the [facility] Emergency Room and hospitalized. 2. He feels significantly better now. He feels that he is back to his normal self. 3. The neurological examination at this time is normal. He has no signs of meningeal irritation. 4. The CT scan of the brain without contrast is benign. 5. Laboratory data on admission revealed a creatinine elevated to 1.3, an anion gap of 18, lactic acid elevated to 2.9, a low serum calcium of 8.5, a CK elevated to 340, and a TSH low at 0.261. His hemoglobin was low at 12.7, and he has a left-sided shift with a neutrophil count of 78%. His urine toxicology screen was benign and so was the urine analysis. 6. The patient's history and neurological examination are most compatible with a possible viral syndrome with the gastrointestinal signs followed by possible dehydration leading to a brief episode of global cerebral dysfunction, which has now resolved. Recommendations 1. Continue present management. 2. At this point in time, no further neurological interventions are recommended. 3. The patient can be discharged home from a neurologic point of view. Zia Garza M.D., M.S.P.Andree. ZIA GARZA Jul 05, 2016 12:13
[2016-07-05 14:21] LABS: MONOTEST Negative (Negative)
[2016-07-05] MEDS ORDERED: NS 275ml ONE (14:50)
[2016-07-05] MEDS ORDERED: Tubing IV Secondary IV ONE ×2 (14:50)
[2016-07-05] MEDS ORDERED: Sterile Water Irrig 1000ml IRRIG ONE (14:50)
--- NOTE | 2016-07-05 16:47 | Progress Note ---
DATE: 07/05/2016 SUBJECTIVE: The patient is doing well. No behavior issues. The patient is not confused. He is alert and oriented x4. It appears that the brief episode of confusion was probably due to dehydration and some bile infection secondary to food poisoning. There is no behavior issues. MENTAL STATUS EXAM: Alert and oriented x3. Mood is neutral. Affect is constricted. Congruent with mood and appropriate. Thought process is linear. Thought content, no suicidal or homicidal ideations. No psychotic symptoms. Cognition is intact. ASSESSMENT: Delirium secondary to dehydration and volume depletion, which is resolved. PLAN: 1. The patient is cleared from psychiatric point of view. 2. No antipsychotics at this time. 3. Discontinue the olanzapine. Robson Patiño M.D. DR: HUGO JOB#: [id number] CC:
--- NOTE | 2016-07-05 21:17 | General Progress Note ---
Assessment/Plan Assessment/Plan ASSESSMENT: 1. Anemia 2/2 chronic disease 2. Altered mental status 3. Encephalopathic 4. Leukopenia likely 2/2 infection 5. Query viral meningitis RECOMMENDATION: - Status overall improved - Does no require a anemia w/u - Peripheral smear reviewed, it is wnl - Otherwise from heme, stable for d/c - All labs reviewed - Imaging reviewed - Staff Thank you, Colin Arias MD Subjective Constitutional: Reports: no symptoms HEENT: Reports: no symptoms Cardiovascular: Reports: no symptoms Respiratory: Reports: no symptoms Gastrointestinal/Abdominal: Reports: no symptoms Genitourinary: Reports: no symptoms Neurologic/Psychiatric: Reports: no symptoms Endocrine: Reports: no symptoms Hematologic/Lymphatic: Reports: anemia Allergies: Coded Allergies: No Known Allergies (Unverified , 07/03/16) Subjective stable, no events reported, no fevers or chills, no bleeding Objective Last 24 Hour Vital Signs Date Time Temp Pulse Resp B/P Pulse Ox O2 Delivery O2 Flow Rate FiO2 07/05/16 11:42 97.7 61 19 104/54 97 Room Air 07/05/16 08:18 97.5 67 19 121/62 97 Room Air 07/05/16 04:00 97.9 69 20 120/81 96 Room Air 07/05/16 00:00 99.1 88 20 130/41 95 Room Air Intake and Output 07/04/16 07/05/16 19:00 07:00 Intake Total 1075 ml 220 ml Balance 1075 ml 220 ml Intake Oral 800 ml IV Total 275 ml 220 ml # Voids 4 5 Laboratory Tests 07/05/16 06:45: White Blood Count 6.5, Red Blood Count 3.85L, Hemoglobin 12.3L, Hematocrit 36.5L , Mean Corpuscular Volume 95, Mean Corpuscular Hemoglobin 31.9H, Mean Corpuscular Hemoglobin Concent 33.7, Red Cell Distribution Width 11.4L, Platelet Count 230, Mean Platelet Volume 7.2, Neutrophils (%) (Auto) , Lymphocytes (%) (Auto) , Monocytes (%) (Auto) , Eosinophils (%) (Auto) , Basophils (%) (Auto) , Differential Total Cells Counted 100, Neutrophils % ( Manual) 45, Lymphocytes % (Manual) 46H, Monocytes % (Manual) 7, Eosinophils % ( Manual) 2, Basophils % (Manual) 0, Band Neutrophils 0, Platelet Estimate Adequate, Platelet Morphology Normal, Red Blood Cell Morphology Normal, Vancomycin Level Trough 14.8H Height (Feet): 5 Height (Inches): 11.00 Weight (Pounds): 175 General Appearance: no apparent distress EENT: TMs normal Neck: supple Cardiovascular: regular rhythm Respiratory/Chest: normal breath sounds Abdomen: non tender Extremities: non-tender Edema: 1+ Leg (L), 1+ Leg (R) Edema: mild edema Neurologic: alert Skin: warm/dry Colin Arias Jul 05, 2016 21:17
[2016-07-06 09:26] LABS: VARICELLA ZOSTER IGM ANTIBODY <0.91 index (0.00-0.90)
[2016-07-06 12:15] LABS: CRYPTOCOCCAL ANTIGEN SERUM Negative (Negative)
--- NOTE | 2016-07-06 13:37 | Consultation ---
DATE OF CONSULTATION: 07/04/2016 HEMATOLOGY/ONCOLOGY CONSULTATION CONSULTING PHYSICIAN: Colin Arias M.D. REQUESTING PHYSICIAN: Renard Perez M.D. REASON FOR CONSULTATION: Evaluation of anemia and evaluation of leukopenia. IDENTIFICATION DATA: Dear Dr. Perez, The patient is a pleasant 30-year-old male with a past medical history significant for occasional dizziness, at this time presents to the hospital with altered mental status. 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 The patient became encephalopathic, he did not feel well. According to his , he had headache, vomiting. ID service was consulted for further evaluation and treatment. Currently Infectious Diseases evaluation is pending. Hematology service was consulted for evaluation of the patient's leukopenia. Peripheral smear at this time is pending. PAST MEDICAL HISTORY: None noted. PAST SURGICAL HISTORY: None noted. MEDICATIONS: Medications have been reviewed. ALLERGIES: No known drug allergies. FAMILY HISTORY: Noncontributory. REVIEW OF SYSTEMS: Constitutional: No fevers, chills, or night sweats. Skin: No rashes, lumps, or itching. HEENT: No headache, hearing, or vision changes. Breasts: No lumps, pain, or discharge. Pulmonary: No cough, sputum, or shortness of breath. Cardiovascular: No chest pain, tightness, or palpitations. Gastrointestinal: No nausea, vomiting, or diarrhea. Genitourinary: No dysuria, frequency, or urgency. Musculoskeletal: No joint swelling, muscle pain, or trauma. PHYSICAL EXAMINATION: GENERAL: The patient is in no acute distress. VITAL SIGNS: Temperature 98.1 degrees Fahrenheit, pulse 74, respiratory rate 12, blood pressure 109/62, pulse oximetry 97% on room air. PULMONARY: Decreased breath sounds bilaterally. CARDIOVASCULAR: Regular rate and rhythm. No S3 or S4. ABDOMEN: Soft, nontender, and nondistended. EXTREMITIES: A 1+ edema. LABORATORY DATA: WBC of 4.5, hemoglobin 12.7, hematocrit 39, and platelet count of 235,000. BUN of 11 and creatinine 1.1. ASSESSMENT: 1. Leukopenia potentially secondary to underlying infection. 2. Anemia secondary to chronic disease. 3. Anemia secondary to fluids and hemodilution. 4. Altered mental status. 5. Delirium. 6. Headache. RECOMMENDATIONS: 1. Monitor counts. 2. Peripheral smear to be reviewed for any abnormalities and white cell series. 3. Followup on infectious etiology workup. 4. Antibiotics per ID service. 5. Followup on ID and pulmonary recommendations. 6. Treat empirically. 7. Deep venous thrombosis prophylaxis with SCDs. 8. Discussed with staff. Thank you, Dr. Renard Perez, for this kind referral. Please do not hesitate to contact me with any further questions. Colin Arias M.D. DR: Shanna JOB#: [id number] CC:
--- NOTE | 2016-07-06 18:10 | Discharge Summary ---
Discharge Summary Hospital Course Date of Admission Jul 03, 2016 at 22:02 Date of Discharge Jul 05, 2016 at 14:51 Admitting Diagnosis Altered Mental Status,encephalopathy HPI Deng Stallings is a 30 year old male who was admitted on Jul 03, 2016 at 22: 02 for Altered Mental Status/Encephalopathy Hospital Course [id number] Discharge Discharge Disposition Patient was discharged to Home (01) Discharge Diagnoses: Mey Steen NP Jul 06, 2016 18:10
--- NOTE | 2016-07-07 02:37 | Discharge Summary 2 SIG ---
DATE OF ADMISSION: 07/03/2016 DATE OF DISCHARGE: 07/05/2016 CONSULTANTS: 1. Colin Arias M.D. 2. Robson Patiño M.D. 3. Mookie Saucedo M.D. 4. Dee Yu M.D. 5. Dominick Cervantes M.D. BRIEF HOSPITAL COURSE: The patient is a 30-year-old male, who was brought in by his coworkers with altered mental status. Per , the patient was normal this morning. He called the in the afternoon saying that he did not feel well. He also had headaches and vomited. The patient was nonsensical. However, there was no slurred speech or facial droop or limb weakness. There was no other medical history. endorsed that the patient smokes marijuana in the past, but no current use. He also had double vision with acute-onset and gotten worse. Dr. Saucedo was consulted. On examination, the patient presented with normal neurologic exam. CT of the brain was normal. Dr. Staton was also consulted for antibiotic therapy suspect infectious meningitis. An LP was attempted at the emergency room, but was not successful. The patient was given empiric antibiotics. Pain management was also consulted. The patient was continued on morphine p.r.n. for severe pain. Psychiatric evaluation was done and was diagnosed with psychotic disorder and started on Zyprexa. The patient's mental status eventually improved. Antipsychotics were discontinued. Delirium was assessed to be secondary to dehydration and volume depletion. Dr. Arias was also consulted. The patient presented with anemia and leukopenia, which was assessed to be secondary to underlying infection. Anemia was secondary to chronic disease and fluids and hemodilution. Suspect the patient had possible viral syndrome with GI symptoms that led to patient's dehydration and brief episode of global cerebral dysfunction, which resolved. The patient was then cleared for discharge to home. FINAL DIAGNOSES: 1. Acute metabolic encephalopathy, resolved. 2. Delirium secondary to dehydration and volume depletion, resolved. 3. Leukopenia secondary to infection. 4. Anemia secondary to hemodilution and hydration. Ali Hadadz, M.D. I have been assigned to dictate discharge summary on this account and I was not involved in the patient's management. Mey Steen N.P. DR: JUANPABLO JOB#: [id number] CC: NITISH
[2016-07-09 08:47] LABS: COCCIDIODES AB-CF/SERUM Negative (Neg:<1:2)
== END 2016-07-05 14:51 | disposition home or self-care (01) | DRG 865 ==
LOC: EMR 20:50 → 4E 22:02 → EDBEDREQ 22:44 → EDBEDREQSVC 07-04 02:05 → EDBEDREQ 07-04 02:05
PROC: 009U3ZX Drainage of Spinal Canal, Percutaneous Approach, Diagnostic (ICD-10-PCS; principal; 2016-07-03)
DX: B34.9 Viral infection, unspecified (principal); G93.41 Metabolic encephalopathy; F05 Delirium due to known physiological condition; Z87.891 Personal history of nicotine dependence; E86.0 Dehydration; D64.9 Anemia, unspecified; D72.819 Decreased white blood cell count, unspecified; F06.8 Other specified mental disorders due to known physiological condition
CPT/HCPCS: 36415; 62270; 70450; 70553; 71010; 80053; 80061; 80202; 80300; 81003; 82550; 82553; 82962; 83605; 84443; 84484; 85007; 85025; 85060; 85610; 85730; 86308; 86635; 86695; 86787; 87040; 87449; 87497; 93005; 93970; A9585